=== PATIENT | female | born 1945 | race Caucasian/White ===

== ENCOUNTER 2017-11-11 13:56 | Outpatient (RCR) | payer MEDICARE, OTHER ==
[2016-10-03 12:35] VITALS: Ht 172.7 cm; Wt 92.5 kg
[2017-11-07 13:15] LABS: PLATELET COUNT, AUTOMATED 190 K/uL (150-450)
[~2017-11-11] VITALS: Ht 172.7 cm; Wt 92.5 kg
[~2017-11-11 13:56] MED LIST: CALC-852 PO; CEPH500T7 PO; CETI-169 PO; CHOL10005 PO; DEX4 PO; DOCU-416 PO; ESCI10TA8 PO; ESCI20TA38 PO; ESCI20TA8 PO; FLUC150T40 PO; GLUC-198 PO; LACT1CAP6 PO; LETR2.5T4 PO; LEVO-3 PO; LEVO75TA73 PO; LIDO30CR3 TP; LORA-1455 PO; METR70GE2 PV; OMEG-11 PO; OMEP-137 PO; ONDA8TAB94 PO; OXYC-854 PO; OXYC-865 PO; PAN20 PO; PNEU0.5D3 IM; PYRI100T57 PO; RANI-318 PO; RIV10 PO; SULF1TAB24 PO; TRAZ-156 PO; UBID30CA27 PO
[2017-11-11 14:01] VITALS: BP 136/76
--- NOTE | 2017-11-12 20:46 | ONCOLOGY FOLLOW UP NOTE ---
EVENT DATE: November 11, 2017 CHIEF COMPLAINT/REASON FOR VISIT Mrs. Manning is a pleasant 72-year-old female with ER/OR positive breast cancer HER2/elliot normal, stage III who presents for followup after adjuvant therapy. HISTORY OF PRESENT ILLNESS Sindhu returns. Overall she tolerated chemotherapy well. 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 She briefly had some liver toxicity which required holding a dose of it, but she was able to proceed. We are worried that the Bactrim may have caused the liver abnormality. She finished chemotherapy in the fall of 2016. Her mammogram at that time was BI-RADS grade 3 and recommend a six-month followup for the probable benign finding. She has this scheduled next month. No other new issues. Her fatigue is improving. We discussed survivorship and working to improve her stamina and muscle strength. I offered physical therapy, but she would like to try it by herself first. ONCOLOGIC HISTORY Sindhu had routine mammography in early 2016, noting a possible abnormality. She has a history of lumpy, bumpy breasts, but had never had anything unusual like this. It was approximately 1-2 cm in size according to her estimate. Imaging revealed a 2.2 cm spiculated mass in the left breast with clinically positive adenopathy. She had lumpectomy with Dr. Osuna including eriberto dissection. This revealed the stage IIIA cancer. It was ER/OR positive, HER2/ elliot normal with a high Ki-67 score. Five of nine lymph nodes were positive for breast cancer. CT scan fortunately showed no evidence of distant disease and her labs were unremarkable for concern for metastatic disease. Lumpectomy occurred in December of 2016, and she then had neoadjuvant AC to weekly Taxol followed by radiation therapy followed by now hormonal therapy. She is on letrozole 2.5 mg daily. PAST MEDICAL HISTORY 1. Breast cancer. 2. Hyperthyroidism. 3. GERD. 4. History of depression. 5. History of hysterectomy. SOCIAL HISTORY Patient is and has presented by herself today. She has been in with her daughter in the past. FAMILY HISTORY Remarkable for breast cancer in a maternal grandmother at age 90. Her father had lymphoma and a paternal grandfather had head and neck cancer, although he was a smoker. REVIEW OF SYSTEMS CONSTITUTIONAL: No fevers, chills, weight change. HEENT: No headache or vision changes. CARDIOVASCULAR: No chest pain, dyspnea on exertion or edema. RESPIRATORY: No shortness of breath, wheeze, cough. GASTROINTESTINAL: No nausea, vomiting, diarrhea or constipation. GENITOURINARY: No dysuria or hematuria. MUSCULOSKELETAL: No weakness or joint pain. PSYCHIATRIC: No anxiety or depression, although she does have a history of depression. ENDOCRINE: No heat or cold intolerance. NEUROLOGIC: Positive numbness throughout. No other new symptoms. It may be slightly improving. RHEUMATOLOGIC: Positive history of arthralgias, osteoarthritis. HEMATOLOGIC: No issues with bruising or bleeding. The remainder of the 14-point review of systems is otherwise negative. PHYSICAL EXAMINATION VITAL SIGNS: Blood pressure 136/76, pulse 70, respiratory rate 16, temperature 97.2 Fahrenheit, oxygen saturation 94% on room air. Weight 92.5 kg. Pain 0/10 , fatigue 0/10. GENERAL: In stable condition, resting comfortably in the chair. HEENT: Normocephalic, atraumatic. CARDIOVASCULAR: Deferred. RESPIRATORY: No shortness of breath. LUNGS: Clear. ABDOMEN: Soft. LYMPHATIC: No appreciable cervical, supraclavicular or axillary adenopathy. She has significant scar tissue on the left breast and axillary exam. It is very strand like with no nodularity fortunately. Remainder of physical exam otherwise unremarkable. IMPRESSION/PLAN Mrs. Manning is a very pleasant 72-year-old female with the following: ER/OR positive HER2/elliot normal stage IIIA grade 3 breast cancer with a known p53 mutation. No evidence of metastatic disease at this time. She finished chemotherapy with AC followed by weekly Taxol. She did require a 10% dose reduction due to myelosuppression. She did develop neuropathy that seemed to be most pronounced after completion of her therapy. We discussed survivorship in detail. We discussed consideration of Physical Therapy consult to help her with her stamina recovery and neuropathy. She would like to work on this by herself at this time. I answered all of her questions today. We will see her in one to two months after her mammogram and then every six months after that with labs. Billing: Return visit level 4. Total time 30 minutes, counseling time 20. MTDD
--- NOTE | 2017-12-10 14:29 | RADIOLOGY IMAGING REPORT ---
FACILITY: [facility] - [place] PATIENT NAME: Sindhu Manning : 1945 MR: [id number] V: [id number] EXAM DATE: ORDERING PHYSICIAN: TAYE MANUEL TECHNOLOGIST: Location: [facility] - [place] Patient: Sindhu Manning : 1945 Visit/Account:[id number] Date of Sevice: 12/10/2017 DEXA Scan Clinical history: History of breast cancer. Comparison: DEXA scan from 10/06/2007. LUMBAR SPINE: The bone mineral density (BMD) measured from L1-L4 correlates with a Z-score of 4.4 and a T-score of 3.6 which is Normal as defined by the World Health Organization. The corresponding risk of fracture in the lumbar spine is Not increased compared with a young adult reference population. This value sparks s increase by 2.6 % since the prior study. More than 5% change is considered significant. HIP: Bone mineral density (BMD) measured in the LEFT total hip region correlates with a Z-score 0.9 and a T-score of zero which is normal as defined by the World Health Organization. The corresponding risk of fracture in the hip is Not i ncreased compared to a young adult reference population. This value has decrease by 12.2 % since the prior study. More than 5% change is considered significant. T score left femoral neck -0.7 Bone mineral density (BMD) measured in the Femoral Neck region measures 0.936 g/cm?. IMPRESSION: 1. Lumbar spine: Normal. There has been 2.6% increase in the bone mineral density since the previou s exam. 2. Left Total Hip: Normal. There has been 12.2% decrease in the bone mineral density since the prev ious exam. 3. Femoral Neck: Bone Mineral Density is 0.936 g/cm? The next DEXA scan of this patient should include the following sites: L1-L4 and the left hip. FRAX? WHO Fracture Risk Assessment Tool link: <http://www.shef.ac.uk/FRAX/tool.jsp?locationValue=9> PLEASE NOTE: 1) The World Health Organization defines low BMD as follows: T-score Normal > -1 Osteopenia < -1 and > -2.5 Osteoporosis < -2.5 without fractures Established osteoporosis < -2.5 with fractures 2) In general, you may wish to consider: Diagnosis Treatment Follow-up DEXA Normal BMD Prevention 2-3 years Osteopenia Prevention/therapy 1-2 years Osteoporosis Therapy Yearly 3) Fracture risk estimated from the T-score is more accurate for vertebral fractures (often spontane ous) than for hip fractures. Report Dictated By: Gina Jacques MD at 12/10/2017 2:22 PM Report E-Signed By: Gina Jacques MD at 12/10/2017 2:24 PM WSN:[id number]
--- NOTE | 2017-12-11 09:53 | RADIOLOGY IMAGING REPORT ---
FACILITY: [facility] PATIENT NAME: CANELO HAMMONDS : [id number] MR: [id number] V: [id number] EXAM DATE: ORDERING PHYSICIAN: TAYE MANUEL TECHNOLOGIST: Heather Deras PROCEDURE:BILATERAL DIAGNOSTIC DIGITAL MAMMOGRAM WITH CAD ASSISTED INTERPRETATION & 3D TOMOSYNTHESIS COMPARISON:Prior mammograms 07/19/17, 12/25/16, 07/18/12 INDICATIONS:6 MO F/U Prior history of left breast cancer FINDINGS: Moderately heterogeneous fibroglandular tissue is again seen throughout the breasts. There is an area of architectural distortion and scaring from previous lumpectomy in the upper outer quadrant of the left breast. There is also skin thickening seen throughout the left breast consistent with prior radiation therapy. The parenchymal pattern has otherwise remained stable. There is no demonstration of malignant appearing mass, calcification or other secondary sign of malignancy in either breast. DIAGNOSTIC CATEGORY 2--BENIGN FINDING. RECOMMENDATIONS: ROUTINE MAMMOGRAM AND CLINICAL EVALUATION. IMPRESSION: BIRADS 2: Benign finding Post surgical scaring and architectural distortion in the upper outer quadrant of the left breast noted from previous lumpectomy. Skin thickening over the left breast is consistent with prior radiation therapy. Dictated by: Gina Jacques M.D. on 12/10/2017 at 15:46 Transcribed by: VALERIA on 12/11/2017 at 9:09 Approved by: Gina Jacques M.D. on 12/11/2017 at 9:52 [facility]
== END 2017-12-11 09:24 | disposition home or self-care (01) ==
LOC: ONC 13:56
PROVIDERS: ATTEND Internal Medicine
DX: Z85.3 Personal history of malignant neoplasm of breast (principal); Z92.21 Personal history of antineoplastic chemotherapy; G62.0 Drug-induced polyneuropathy; Z87.891 Personal history of nicotine dependence; Z92.3 Personal history of irradiation; R53.83 Other fatigue; Z78.0 Asymptomatic menopausal state
CPT/HCPCS: 36415; 77062; 77066; 77080; 85025; G0463; 82040; 82247; 82310; 82374; 82435; 82565; 82947; 84075; 84132; 84155; 84295; 84450; 84460; 84520; 99212

== ENCOUNTER 2017-12-17 13:28 | Outpatient (RCR) | payer MEDICARE, OTHER ==
[2016-10-03 12:35] VITALS: BMI 36.2
[2017-07-25 12:30] VITALS: BP 137/75
== END 2017-12-25 11:26 | disposition home or self-care (01) ==
LOC: RAON 13:28
PROVIDERS: ATTEND Radiology Radiation Oncology
DX: Z85.3 Personal history of malignant neoplasm of breast (principal); Z92.3 Personal history of irradiation; Z92.21 Personal history of antineoplastic chemotherapy; K21.9 Gastro-esophageal reflux disease without esophagitis; E07.9 Disorder of thyroid, unspecified; E66.9 Obesity, unspecified; Z79.899 Other long term (current) drug therapy
CPT/HCPCS: 99212

== ENCOUNTER → 2018-02-04 | Outpatient (CLI) | payer MEDICARE, OTHER ==
[2016-10-03 12:35] VITALS: BMI 36.2
[~2018-02-04] MED LIST changes: +BIOT250012 PO
== END ==
LOC: LAB 14:59
PROVIDERS: ATTEND Internal Medicine
DX: E78.00 Pure hypercholesterolemia, unspecified (principal); E03.9 Hypothyroidism, unspecified
CPT/HCPCS: 36415; 82465; 83718; 84443; 84478

== ENCOUNTER 2018-03-25 13:00 | Outpatient (RCR) | payer MEDICARE, OTHER ==
[2016-10-03 12:35] VITALS: BMI 36.2
[2017-07-25 12:30] VITALS: BP 137/75
[~2018-03-25 13:00] MED LIST changes: -TRAZ-156 PO; +TRAZ50TA34 PO
--- NOTE | 2018-04-01 11:12 | Oncology Progress Note ---
Allergies & Medications Allergies: Coded Allergies: Sulfa (Sulfonamide Antibiotics) (Verified Allergy, Intermediate, FEVER, ) Flu like sxs Penicillins (Verified Allergy, Mild, RASH, 02/02/17) Home Meds Active Scripts Letrozole (LETROZOLE) 2.5 Mg Tablet, 2.5 MG PO DAILY for 30 Days, #30 TAB 11 Refills Prov:DANIEL MIGUEL FAMILY AND MARRIAGE COUNSELLOR-BC, ONC 10/04/17 Levothyroxine Sodium (LEVOTHYROXINE SODIUM) 100 Mcg Tablet, 1 TAB PO QDAY, #90 TAB 4 Refills Prov:MARY MARTINO MD 01/30/17 Docusate Sodium (COLACE) 100 Mg Capsule, 1 CAP PO BID, #30 CAP 0 Refills TAKE WITH A FULL GLASS OF WATER Prov:VIJAY CARDOSO MD 11/15/16 Omeprazole (OMEPRAZOLE) 20 Mg Tablet.dr, 1 TAB PO DAILY, #90 TAB 4 Refills Prov:MARY MARTINO MD 02/01/16 Reported Medications Biotin (BIOTIN) 2,500 Mcg Capsule, 2 CAP PO QDAY, CAPSULE 02/04/18 Discontinued Reported Medications Ubidecarenone (COQ-10) Unknown Strength Capsule, 30 MG PO QDAY, CAPSULE 12/31/16 Discontinued Scripts Pyridoxine Hcl (VITAMIN B-6) 100 Mg Tablet, 100 MG PO BID, #60 TAB 6 Refills Prov:DANIEL MIGUEL FAMILY AND MARRIAGE COUNSELLOR-BC, ONC 04/01/17 Gastrointestinal: Constipation Gentiourinary: Other Psychiatric: Anxiety Vital Signs Temperature: 98.4 Pulse: 82 BP Systolic: 137 BP Diastolic: 75 Respiratory Rate: 16 O2 SAT: 97 O2 Delivery: Height (feet) Height (inches) 68.00 Weight lb: 226 Weight oz: Weight Kg (Alfie): Pain: 0 Psychiatric: Mood appears normal Plan Spoke to MRS. HAMMONDS TEL: [phone] patient over the phone. REPORTS NO ISSUES OR CONCERNS. informed of benign diagnostic mammogram findings on 03/27/18. Patient instructed to Have her yearly mammogram done in November. and F/u appointment with Dr. Rodriguez in aprox 3 month. PLAN 1. MAMMOGRAM YEARLY DUE IN NOVEMBER 2018 2. F/U LABS AND APPOINTMENT WITH DR. RODRIGUEZ IN THREE MONTHS FROM TODAY. 3. CALL CLINIC FOR ANY ISSUES OR CONCERNS Provider: Remy Rodriguez Copies to: REMY RODRIGUEZ MD [facility], ONC Apr 01, 2018 11:12
--- NOTE | 2018-04-01 11:17 | Oncology Progress Note ---
Allergies & Medications Allergies: Coded Allergies: Sulfa (Sulfonamide Antibiotics) (Verified Allergy, Intermediate, FEVER, ) Flu like sxs Penicillins (Verified Allergy, Mild, RASH, 02/02/17) Home Meds Active Scripts Letrozole (LETROZOLE) 2.5 Mg Tablet, 2.5 MG PO DAILY for 30 Days, #30 TAB 11 Refills Prov:DANIEL MIGUEL TICKET AGENT-BC, ONC 10/04/17 Levothyroxine Sodium (LEVOTHYROXINE SODIUM) 100 Mcg Tablet, 1 TAB PO QDAY, #90 TAB 4 Refills Prov:MARY MARTINO MD 01/30/17 Docusate Sodium (COLACE) 100 Mg Capsule, 1 CAP PO BID, #30 CAP 0 Refills TAKE WITH A FULL GLASS OF WATER Prov:VIJAY CARDOSO MD 11/15/16 Omeprazole (OMEPRAZOLE) 20 Mg Tablet.dr, 1 TAB PO DAILY, #90 TAB 4 Refills Prov:MARY MARTINO MD 02/01/16 Reported Medications Biotin (BIOTIN) 2,500 Mcg Capsule, 2 CAP PO QDAY, CAPSULE 02/04/18 Discontinued Reported Medications Ubidecarenone (COQ-10) Unknown Strength Capsule, 30 MG PO QDAY, CAPSULE 12/31/16 Discontinued Scripts Pyridoxine Hcl (VITAMIN B-6) 100 Mg Tablet, 100 MG PO BID, #60 TAB 6 Refills Prov:DANIEL MIGUEL TICKET AGENT-BC, ONC 04/01/17 Gastrointestinal: Constipation Gentiourinary: Other Psychiatric: Anxiety Vital Signs Temperature: 98.4 Pulse: 82 BP Systolic: 137 BP Diastolic: 75 Respiratory Rate: 16 O2 SAT: 97 O2 Delivery: Height (feet) Height (inches) 68.00 Weight lb: 226 Weight oz: Weight Kg (Alfie): Pain: 0 Psychiatric: Mood appears normal Plan Spoke to MRS. HAMMONDS TEL: [phone] patient over the phone. REPORTS NO ISSUES OR CONCERNS. informed of benign diagnostic mammogram findings on 03/27/18. Patient instructed to Have her yearly mammogram done in November. F/u appointment with Dr. Rodriguez in aprox 3 month. PLAN 1. MAMMOGRAM YEARLY DUE IN NOVEMBER 2018 2. F/U LABS AND APPOINTMENT WITH DR. RODRIGUEZ IN THREE MONTHS FROM TODAY. 3. CALL CLINIC FOR ANY ISSUES OR CONCERNS KEANU CUADRA, ONC Apr 01, 2018 11:17
== END 2018-05-15 12:30 | disposition home or self-care (01) ==
LOC: RAON 13:00
PROVIDERS: ATTEND Radiology Radiation Oncology
DX: C50.412 Malignant neoplasm of upper-outer quadrant of left female breast (principal); Z17.0 Estrogen receptor positive status [ER+]; K21.9 Gastro-esophageal reflux disease without esophagitis; E07.1 Dyshormogenetic goiter; E07.9 Disorder of thyroid, unspecified; Z92.3 Personal history of irradiation
CPT/HCPCS: 99212

== ENCOUNTER → 2018-03-27 | Outpatient (CLI) | payer MEDICARE, OTHER ==
[2016-10-03 12:35] VITALS: BMI 36.2
[~2018-03-27] MED LIST changes: +TRAZ-156 PO; -TRAZ50TA34 PO
--- NOTE | 2018-03-31 11:28 | RADIOLOGY IMAGING REPORT ---
FACILITY: [facility] - [place] PATIENT NAME: CANELO HAMMONDS : [id number] MR: [id number] V: [id number] EXAM DATE: [id number] ORDERING PHYSICIAN: REMY EDMONDS TECHNOLOGIST: Heather Deras PROCEDURE:LEFT DIGITAL DIAGNOSTIC MAMMOGRAM WITH CAD ASSISTED INTERPRETATION & 3D TOMOSYNTHESIS COMPARISON:Prior mammograms 12/10/17, 07/19/17, 01/03/17, 12/25/16, 07/18/12. INDICATIONS:PRIOR HISTORY OF LEFT BREAST CANCER WITH NEW LUMP IN UPPER OUTER QUADRANT. FINDINGS: Again there is heterogeneous tissue throughout the Left breast. Area of architectural distortion and scaring from the previous lumpectomy in the upper outer quadrant of the Left breast appears similar to the prior study. Skin thickening also noted throughout the Left breast consistent with prior radiation therapy. The parenchymal pattern has remained stable when allowing for difference in mammographic technique & patient positioning. There is no evidence of malignant appearing mass, or calcification of Left breast. Today's Left breast Ultrasound also appeared stable. Clinical follow-up recommended for patient's palpable findings. DIAGNOSTIC CATEGORY 2--BENIGN FINDING. RECOMMENDATIONS: ROUTINE MAMMOGRAM AND CLINICAL EVALUATION. CLINICAL EVALUATION. IMPRESSION: BIRADS 2: Benign finding. Post surgical and post radiation changes in the Left breast appear stable when compared to prior study. Clinical follow-up recommended for patient's palpable findings in the upper outer quadrant of the Left breast. Dictated by: Gina Jacques M.D. on 03/27/2018 at 15:35 Transcribed by: VALERIA on 03/27/2018 at 15:47 Approved by: Gina Jacques M.D. on 03/31/2018 at 11:27 [facility]
--- NOTE | 2018-03-31 11:28 | RADIOLOGY IMAGING REPORT ---
FACILITY: [facility] PATIENT NAME: CANELO HAMMONDS : [id number] MR: [id number] V: [id number] EXAM DATE: [id number] ORDERING PHYSICIAN: REMY EDMONDS TECHNOLOGIST: Brenda Davalos RT(R)(CT) PROCEDURE:US LEFT BREAST COMPARISON:Left breast Ultrasound of 04/02/17. INDICATIONS:PRIOR HISTORY OF LEFT BREAST CANCER WITH A NEW LUMP UPPER OUTER QUADRANT OF THE LEFT BREAST. FINDINGS: Again noted is mildly heterogeneous appearance to the breast tissue in the 2-3 o'clock position Left breast in location of previous lumpectomy. The sonographic appearance appears stable. The previously noted hypoechoic density in the 4 o'clock position of the Left breast likewise remains stable measuring approximately 9 x 7mm several small fluid pockets are identified in the Left axilla again likely postoperative. No sonographic abnormalities identified in the 12-1 o'clock position in location of patient's palpable findings. DIAGNOSTIC CATEGORY 2--BENIGN FINDING. RECOMMENDATIONS: ROUTINE MAMMOGRAM AND CLINICAL EVALUATION. CLINICAL EVALUATION. IMPRESSION: BIRADS 2: Benign finding. The sonographic appearance to the Left breast appears stable therefore clinical follow-up recommended for patient's palpable findings. Dictated by: Gina Jacques M.D. on 03/27/2018 at 15:39 Transcribed by: VALERIA on 03/27/2018 at 16:08 Approved by: Gina Jacques M.D. on 03/31/2018 at 11:27 [facility]
== END ==
LOC: MAMO 00:18
PROVIDERS: ATTEND Radiology Radiation Oncology
DX: C50.412 Malignant neoplasm of upper-outer quadrant of left female breast (principal); N63.0 Unspecified lump in unspecified breast; Z17.0 Estrogen receptor positive status [ER+]
CPT/HCPCS: 77061; 77065

== ENCOUNTER → 2018-06-04 | Outpatient (CLI) | payer MEDICARE, OTHER ==
[2016-10-03 12:35] VITALS: BMI 36.2
[~2018-06-04] MED LIST changes: -TRAZ-156 PO; +TRAZ50TA34 PO
== END ==
LOC: LAB 10:24
PROVIDERS: ATTEND Internal Medicine
DX: E03.9 Hypothyroidism, unspecified (principal); R53.83 Other fatigue
CPT/HCPCS: 36415; 84443

== ENCOUNTER 2018-07-03 13:00 | Outpatient (RCR) | payer MEDICARE, OTHER ==
[2016-10-03 12:35] VITALS: BMI 36.2
[2017-07-25 12:30] VITALS: BP 137/75
--- NOTE | 2018-07-03 16:07 | Oncology Progress Note ---
History of Present Illness Evaluation Evaluation Date: Jul 03, 2018 Evaluation Time: 13:10 Accompanied by Accompanied by: Self Chief Complaint Chief Complaint Follow up Surveillance of ER/NC positive HER2/elliot normal stage IIIA grade 3 le ft breast cancer with a known p53 mutation Oncology History Oncology History Sindhu had a routine mammogram in early 2016 after noting a possible abnormality in October 2016. She has a history of "lumpy, bumpy breasts" and had not though that this was anything unusual. It was bout 1 to 2 cm in size. Imaging workup revealed a 2.2 cm spiculated lesion on the left breast with concerns for clinically positive lymphadenopathy on the left as well. She went to lumpectomy with Dr. Cardoso, including x-ray dissection. This revealed the stage IIIA cancer. It was ER positive, NC positive, HER2/elliot normal. There is a high Ki- 67 score. She had 5 of 9 lymph nodes positive for breast cancer, including a clinically noted node. CT scan showed no distant disease. Labs were unremarkable for any concerns for liver or bone metastases. She completed lumpectomy in mid-to-late December 2016 with plans for adjuvant chemotherapy followed by radiation therapy and hormonal therapy. Treatment Treatment February 2017- June 2017 - Four dose dense Adriamycin, Cytoxan required 10% dose reduction due to myelosuppression. -Taxol x 12 weeks - Radiation Therapy - Letrozole 2.5mg Po Daily 11/2017. She stopped taking medication in April 2018 due to hair thinning. HPI HPI Mrs. Nigel Millan, is a very pleasant 72-year-old female with the following: ER/NC positive HER2/elliot normal stage IIIA grade 3 breast cancer with a known p53 mutation. No evidence of metastatic disease at this time. She finished chemotherapy with AC followed by weekly Taxol. She did require a 10% dose reduction due to myelosuppression. She did develop neuropathy that seemed to be most pronounced after completion of her therapy. Patient reports being in her usual state of health. with no complaints, no changes from her baseline health status, denies any hot flashes, no changes in bowel bladder pattern, minimal weight gain. 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 She is requesting to be placed onto a different type of AI that will not cause hair loss/thinning. "I do not feel that I am ready to go bald, especially if I have to take this medication for the next five years, and what is the data of benefit of recurrence of the breast cancer." I informed Ms. Manning about the ASCO recommendation guidelines on postmenopausal women to be put on five years of AI has demonstrated significant improved rate of disease free survival and and decreased risk of disease recurrence and contralateral breast cancer ( when compared to placebo). ASCO J. Clin Oncol. 2014;32(21):2255- 2262. I also mentioned to patient on other two option possible such as tamoxifen, or Arimidex, and explained to her the possible side effects such as DVT, blood clots. She was more understanding after the visit, and she decided to resume Letrozole along with some hair growth supplements. And if in three months she still not satisfied we can then revisit the option to switching agents. She agrees with Plan, I will have patient to followup with Dr. Manuel in 10/02/18 approximately. I would like patient to have an education session prior to initiating next agent with the Pharmacist, and or chemo RN. [facility] Patient History: FH: HTN (hypertension) MOTHER, Age:101 FH: arrhythmia BROTHER, Age:77 FH: breast cancer FH: cancer FH: hyperlipidemia FATHER, , Age:81 FH: lung disease BROTHER, Age:77 (silver, [employer] and uranium mines) FH: lymphoma FATHER, , Age:81, Onset:68 FH: multiple sclerosis SISTER, Age:78 Social/Occupational History Social History: Social History This is a 72 Yr old White female, she is S Single and has [] Children Hx Smoking: No Smoking Status: Never Smoker Allergies & Medications Allergies: Coded Allergies: Sulfa (Sulfonamide Antibiotics) (Verified Allergy, Intermediate, FEVER, 06/03/17) Flu like sxs Penicillins (Verified Allergy, Mild, RASH, 02/02/17) Home Meds Active Scripts Levothyroxine Sodium (LEVOTHYROXINE SODIUM) 100 Mcg Tablet, 1 TAB PO QDAY, #90 TAB 4 Refills 1 tab po q d 6 X / week, and skip one day weekly Prov:MARY MARTINO MD 06/05/18 Letrozole (LETROZOLE) 2.5 Mg Tablet, 2.5 MG PO DAILY for 30 Days, #30 TAB 11 Refills Prov:DANIEL MIGUEL CHILD LIFE SPECIALIST-BC, ONC 10/04/17 Docusate Sodium (COLACE) 100 Mg Capsule, 1 CAP PO BID, #30 CAP 0 Refills TAKE WITH A FULL GLASS OF WATER Prov:VIJAY CARDOSO MD 11/15/16 Omeprazole (OMEPRAZOLE) 20 Mg Tablet.dr, 1 TAB PO DAILY, #90 TAB 4 Refills Prov:MARY MARTINO MD 02/01/16 Reported Medications Biotin (BIOTIN) 2,500 Mcg Capsule, 2 CAP PO QDAY, CAPSULE 02/04/18 Review of Systems Constitution: Denies Appetite/Weight Change, Denies Fever/Chills/Sweating, Denies Recent Infection, Denies Other HEENT: No EARS: Tinnitus, No NOSE: Nasal Discharge, No THROAT: Sore Throat, No EYES: Dipolpia, No EARS: Hearing Problems, No NOSE: Epistaxis, No THROAT: Mouth Ulcers, No EYES: Vision Change, No OTHER Respiratory: No Cough, No Expectoration, No Hemoptysis, No Shortness of Breath, No OTHER Gastrointestinal: Constipation Gentiourinary: No Hematuria, No Dysuria, No Nocturia; Other Musculoskeletal: No Muscle Pain, No Joint Pain, No Bone Pain, No Other Hematological: No Bleeding, No Weakness, No Enlarged Lyph Nodes, No Bruising, No Fatigue, No Other Skin: No Skin Rash, No Lumps, No Erythema, No Dry Skin, No Moist Skin, No Other Psychiatric: Anxiety Vital Signs Vital Signs Temperature: 98.4 Pulse: 69 BP Systolic: 125 BP Diastolic: 73 Respiratory Rate: 16 O2 SAT: 97 O2 Delivery: Height (feet) Height (inches) 68.00 Weight lb: 226 Weight oz: Weight Kg (Alfie): Pain: 0 ECOG-0 Physical Exam General: Looks Stable, Well Developed, Well Nourished HEENT: No HEAD:Atraumatic, No EYES: Conjuctivitis, No EYES: Icterus, No MOUTH: Mucocitis, No MOUTH: Oral Thrush, No SINUS: Tenderness to Palpation, No Other Neck: Supple; No Cervical Lymphadenopathy, No Subclavicular Lymphadopathy, No Thyromegaly, No Other Lungs: Clear to Auscultation, Percussion Bilaterally Heart: Regular Rate and Rhythm Abdomen: Soft and Nontender; No Hepatosplenomegaly, No Masses, No Other Extremities: No Cyanosis, No Clubbing, No Edema, No Other Lymphatics: Peripheral Lymphadenopathy Psychiatric: Mood appears normal, Other (Initially was frustrated with hair thinning ) Skin: No Skin Rashes, No Bruising, No Purpura, No Moist Desquamation, No Dry Desquamation, No Errythema, No Mild Errythema, No Moderate Errythema, No Severe Errythema, No Induration, No Other Breast: No No Masses, No No Nipple Discharge, No No Skin Changes, No Other Other Hair thinning, male bald pattern. Assessment and Plan Assessment and Plan Mrs. Nigel Manley, is a very pleasant 72-year-old female with the following: ER/NC positive HER2/elliot normal stage IIIA grade 3 left breast cancer with a known p53 mutation Dx: 12/2016. Currently on AI letrozole 2.5 mg Po daily ( for 5 years, started 11/2017). No evidence of metastatic disease at this time. She finished chemotherapy with AC followed by weekly Taxol. She did require a 10% dose reduction due to myelosuppression. She did develop neuropathy that seemed to be most pronounced after completion of her therapy. Patient reports being in her usual state of health. with no complaints, no changes from her baseline health status, denies any hot flashes, no changes in bowel bladder pattern, minimal weight gain. 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 She is requesting to be placed onto a different type of AI that will not cause hair loss/thinning. "I do not feel that I am ready to go bald, especially if I have to take this medication for the next five years, and what is the data of benefit of recurrence of the breast cancer. Patient recently was seen by PCp and her levotyroxine was titrated to a one day break per week for a THS of 0.23 DIAGNOSTIC DATA reviewed per [facility] 1. Stage IIIA, ER/NC positive, HER2/elliot normal, grade III invasive ductal carcin ramiro of the left breast. Currently on AI letrozole 2.5 mg Po daily ( for 5 years, started 11/2017). patient did take a break and stopped taking for 2 months because of hair thinning. We did spend time talking about the benefits and disadvantages of continuing therapy, patient had additional questions, that i believed I answered to the best of my knowledge, she resumed the Letrozole today, she will See Dr. Manuel in three months, and revisit if she still would like to switch agents.. She finished chemotherapy with AC followed by weekly Taxol. She did require a 10% dose reduction due to myelosuppression. She did develop neuropathy that seemed to be most pronounced after completion of her therapy. CHRONIC Well managed by PCP 1. Breast cancer. 2. Hyperthyroidism. 3. GERD. 4. History of depression. 5. History of hysterectomy PLAN - Patient to resume Letrozole 2.5 mg Po daily today, as she had stopped for 2 months due to hair thinning concerns.( for 5 years, started 11/2017). Given the fact she is not experiencing any other side effects, no hot flashes,no fatigue, ,no headaches, no dizziness. - Patient to see Dr. Manuel on around 10/02/18, and then revisit if she wants to continue with current AI, or switch to a new agent. - patient may take hair growth supplement, fish oil, omega 03 oil, biotin, iron, calcium, magnesium, black currant oil. - Patient will need Education shall a new agent is initiated - Patient to Continue coordination of care with multidisciplinary team, PCP - Patient to contact cancer center with any issues or concerns. -Education, patient instructed to go to ER immediately and, or call Clinic if any Shortness of Breath, Temp >/=100.4, fevers, chills, cardiac type chest pain, bleeding, excessive bruising, headaches, blurry vision, dizziness, abdominal pain, difficulty swallowing, and pain unrelieved by medication, skin rashes, oozing wounds. TIME SPENT: 30 minutes 25 > minutes includes but not limited to discussion, counselling and co-ordination~ of care. Discussion with other health care providers, record review, review of lab work, diagnostic tests. Plan discussed extensively with patient. All the questions answered today. Thank you for the opportunity to be involved in the care of Mrs. Nigel Manley. Billing Level: Return visit 4 CC Copies to: TAYE MANUEL MD ; KEANU CUADRATigre, ONC Jul 03, 2018 16:07
[2018-08-04] MEDS ORDERED: LEVO-3 PO (13:31)
== END 2018-08-18 14:30 | disposition home or self-care (01) ==
LOC: RAON 13:00
PROVIDERS: ATTEND Nurse Practitioner Family
DX: C50.912 Malignant neoplasm of unspecified site of left female breast (principal); Z17.0 Estrogen receptor positive status [ER+]
CPT/HCPCS: 99212

== ENCOUNTER 2018-11-17 12:27 | Outpatient (RCR) | payer MEDICARE, OTHER ==
[2016-10-03 12:35] VITALS: BMI 36.2
[2018-11-10 12:20] LABS: PLATELET COUNT, AUTOMATED 254 K/uL (150-450)
[2018-11-10 12:59] VITALS: BP 157/77
[~2018-11-17 12:27] MED LIST changes: +BENZ200C15 PO; +DOXY-179 PO; +ROBC PO
[2018-11-17 12:34] VITALS: BP 136/85
--- NOTE | 2018-11-18 05:02 | ONCOLOGY FOLLOW UP NOTE ---
EVENT DATE: November 17, 2018 CHIEF COMPLAINT Followup for breast cancer. HISTORY OF PRESENT ILLNESS Patient is a 73-year-old female who is seen today in six-month followup for stage IIIA left breast cancer. She continues on letrozole, which she is tolerating fairly well. She had stopped it for several months over the summer due to hair loss, but then restarted it. She notes overall thinning on the top of her head, but is managing this without issue. She denies significant bony arthralgias. She has had a "cold" for approximately five weeks. She was prescribed doxycycline and is no longer febrile. She has significant cough, which is now much clearer. She is very fatigued from this URI. 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 ONCOLOGY HISTORY Routine mammogram in early 2016 noted a possible abnormality, 1 to 2 cm in size. Imaging revealed a 2.2 cm spiculated mass in the left breast with clinically positive adenopathy. Underwent left lumpectomy on 01/03/17, revealing a grade 3, 1.7 x 1.9 x 2.2 cm invasive ductal carcinoma, with lymphovascular invasion. Five of nine lymph nodes were positive for breast cancer. CT scan showed no evidence of distant disease. Completed Adriamycin and Cytoxan, followed by Taxol. She then completed adjuvant radiation therapy. She began letrozole in 2018. PAST MEDICAL HISTORY 1. Left breast cancer, December 2016. 2. Hyperthyroidism. 3. GERD. 4. History of depression. PAST SURGICAL HISTORY 1. Left lumpectomy, 01/03/17. 2. MELIA. 3. Laparoscopic cholecystectomy. 4. Right shoulder replacement. 5. Bilateral knee replacements. FAMILY HISTORY Maternal grandmother had breast cancer at age 90. Father had lymphoma. Paternal grandfather had head and neck cancer (smoker). SOCIAL HISTORY Patient is single. She has two grown children. 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 She does not smoke. MEDICATIONS 1. Levothyroxine 100 mcg daily. 2. Letrozole 2.5 mg daily. 3. Omeprazole 20 mg daily. 4. Biotin 2500 mcg, two capsules daily. 5. Colace p.r.n. ALLERGIES 1. PENICILLINS. 2. SULFA. REVIEW OF SYSTEMS A 12-point review of systems was performed and is negative except as stated above. PHYSICAL EXAMINATION VITAL SIGNS: Blood pressure 135/85, pulse 81, respirations 16, temp 97.3, O2 sat 93%. GENERAL: Patient is a well-developed, well-nourished female in no acute distress. HEAD: Normocephalic, atraumatic. EYES: Sclerae anicteric. MOUTH: Moist mucous membranes. Mild erythema in posterior pharynx, but no exudates. NECK: Supple. No palpable adenopathy. CARDIOVASCULAR: Heart rate regular, 80 per minute, without murmur, S3 or S4. LUNGS: Coarse cough with expiratory wheezes in left lower lobe, which cleared on coughing. ABDOMEN: Soft, nontender, with hypoactive bowel sounds. No organomegaly. EXTREMITIES: No edema. NEURO: Nonfocal. LABORATORY CBC today reveals WBC of 4.4, ANC of 2.9, hemoglobin 13.7, hematocrit 42.3, platelets 254,000. CMP is within normal limits. Vitamin D of 32. IMPRESSION AND PLAN The patient is a 73-year-old female diagnosed with stage IIIA left breast cancer in 2016. Underwent lumpectomy with five of nine nodes positive. Completed chemotherapy with Adriamycin and Cytoxan followed by Taxol. Completed adjuvant radiation. Began letrozole in 2018. 1. Breast cancer. No signs or symptoms of disease recurrence. She had stopped the letrozole due to hair loss, but restarted it last fall. She feels she is tolerating this fairly well. Hair loss has not progressed. We discussed the benefit associated with letrozole. 2. Breast surveillance. Left mammogram on 03/27/18 was BIRADS category 2. She will undergo bilateral mammogram at the end of November, ordered today. 3. Bone health. Bone density on 12/10/17 was within normal limits except for mild osteopenia in the femoral neck. This will be repeated in November 2019. Vitamin D was slightly low at 32. I recommended she take vitamin D3 at 1000 to 2000 international units daily. 4. Upper respiratory infection. Completed a course of doxycycline. She does note some improvement, although it is "dragging on." She will continue followup with Dr. Davidson. 5. Followup with Dr. Salter in six months for continued care. CBC and CMP will be done at that time. [facility]
== END 2018-12-09 08:49 | disposition home or self-care (01) ==
LOC: ONC 12:27
PROVIDERS: ATTEND Internal Medicine
DX: Z85.3 Personal history of malignant neoplasm of breast (principal); Z92.21 Personal history of antineoplastic chemotherapy; G62.0 Drug-induced polyneuropathy; Z87.891 Personal history of nicotine dependence
CPT/HCPCS: 36415; 82306; 85025; G0463; 82040; 82247; 82310; 82374; 82435; 82565; 82947; 84075; 84132; 84155; 84295; 84450; 84460; 84520; 99212

== ENCOUNTER → 2018-12-22 | Outpatient (CLI) | payer MEDICARE, OTHER ==
[2016-10-03 12:35] VITALS: BMI 36.2
--- NOTE | 2018-12-24 13:37 | RADIOLOGY IMAGING REPORT ---
FACILITY: [facility] - [place] PATIENT NAME: CANELO HAMMONDS : [id number] MR: [id number] V: [id number] EXAM DATE: [id number] ORDERING PHYSICIAN: TAYE MANUEL TECHNOLOGIST: Heather Deras PROCEDURE:BILATERAL DIAGNOSTIC DIGITAL MAMMOGRAM WITH CAD ASSISTED INTERPRETATION & 3D TOMOSYNTHESIS COMPARISON:Prior mammograms 03/27/18, 12/10/17, 07/19/17, 12/25/16, 07/18/12. INDICATIONS:PRIOR BREAST CANCER FINDINGS: The breasts are heterogeneously dense which can obscure small masses. The Left breast is smaller than the Right sense the previous lumpectomy. There is an area of postsurgical scaring and architectural distortion in the upper outer quadrant of the Left breast. There is skin thickening throughout the Left breast consistent with the history of radiation therapy. The parenchymal pattern has remained stable. DIAGNOSTIC CATEGORY 2--BENIGN FINDING. RECOMMENDATIONS: ROUTINE MAMMOGRAM AND CLINICAL EVALUATION. IMPRESSION: BIRADS 2: Benign finding. Postsurgical changes from lumpectomy in the upper outer quadrant of the Left breast appear stable. Dictated by: Gina Jacques M.D. on 12/22/2018 at 17:29 Transcribed by: VALERIA on 12/23/2018 at 9:08 Approved by: Gina Jacques M.D. on 12/24/2018 at 13:36 [facility]
== END ==
LOC: MAMO 13:35
PROVIDERS: ATTEND Internal Medicine
DX: C50.919 Malignant neoplasm of unspecified site of unspecified female breast (principal); Z17.0 Estrogen receptor positive status [ER+]; Z92.3 Personal history of irradiation
CPT/HCPCS: 77062; 77066